=== PATIENT | male | born 1975 | race Caucasian/White ===

== ENCOUNTER 2022-01-24 16:24 | Emergency (ER) | payer BC ==
[2022-01-24 16:39] VITALS: BP 137/83; PULSE 87; RESP 16; TEMP 98.2
[2022-01-24] MEDS ORDERED: KETOROLAC 15 MG/ML 1 ML VIAL IM STA (17:33)
--- NOTE | 2022-01-24 17:36 | ED ---
Skin/Abscess/FB HPI - General Chief complaint: Skin/Abscess/Foreign Body Stated complaint: Body Aches, Rash on back Time Seen by Provider: 01/24/22 16:48 Source: patient, RN notes reviewed, old records reviewed Mode of arrival: ambulatory Limitations: no limitations - History of Present Illness Initial comments: Patient is a 46-year-old male presenting to the emergency Department with complaints of pain on his right back and extending around to the right front of his abdomen. He states it started about 2 days ago, has been really intense and then yesterday he noticed a rash on the same area. He denies any fevers or chills, nausea or vomiting. He has not tried anything for the pain. Patient has never had anything like this before. He denies any chest pain or shortness of breath, no cough or congestion. He has no further complaints. - Related Data Previous Rx's Medication Instructions Recorded Lidocaine 2% Gel [Xylocaine Jelly 1 applic TOPICAL BID PRN #20 gm 01/24/22 2%] valACYclovir HCL [Valtrex] 1,000 mg PO Q8HR 7 Days #21 tab 01/24/22 Allergies Allergy/AdvReac Type Severity Reaction Status Date / Time No Known Allergies Allergy Verified 01/24/22 16:36 Review of Systems ROS Statement: Those systems with pertinent positive or pertinent negative responses have been documented in the HPI. ROS Other: All systems not noted in ROS Statement are negative. Past Medical History Past Medical History: No Reported History History of Any Multi-Drug Resistant Organisms: None Reported Past Surgical History: No Surgical Hx Reported Smoking Status: Current every day smoker Past Alcohol Use History: None Reported Past Drug Use History: Marijuana General Exam - General Exam Comments Initial Comments: GENERAL: Patient is well-developed and well-nourished. Patient is nontoxic and in no acute distress. HEAD: Atraumatic, normocephalic. EYES: Pupils equal round and reactive to light, extraocular movements intact, sclera anicteric, conjunctiva are normal. Eyelids were unremarkable. ENT: Oropharynx clear without exudates. Moist mucous membranes. NECK: Normal range of motion, supple without lymphadenopathy or JVD. LUNGS: Unlabored respirations. Breath sounds clear to auscultation bilaterally and equal. No wheezes rales or rhonchi. HEART: Regular rate and rhythm without murmurs, rubs or gallops. ABDOMEN: Soft, nontender, normoactive bowel sounds. No guarding, no rebound. No masses appreciated. MUSCULOSKELETAL: Normal extremities with adequate strength and normal range of motion, no pitting or edema. No clubbing or cyanosis. NEUROLOGICAL: Patient is alert and oriented x 3. SKIN: Warm, Dry, normal turgor. Patient has mild erythematous papule rash consistent with shingles extending on the right T8 to T9 dermatome from the back extending around to the anterior right trunk. Limitations: no limitations Course Vital Signs 01/24/22 16:36 Temperature 98.2 F Pulse Rate 87 Respiratory 16 Rate Blood Pressure 137/83 O2 Sat by Pulse 98 Oximetry Medical Decision Making - Medical Decision Making Patient is a 46-year-old male here with shingles to the right T8 to T9 dermatome. Pain started about 2 days ago, rash started yesterday. Patient be given pain control here. I will start him on antiviral, recommended ibuprofen and/or Tylenol for discomfort. I will also prescribe him lidocaine patch. She is in agreement with this plan care and is stable for discharge. Disposition Clinical Impression: Shingles Disposition: HOME SELF-CARE Condition: Stable Instructions (If sedation given, give patient instructions): Shingles (ED) Additional Instructions: Please return to the Emergency Department if symptoms worsen or any other concerns. Recommended Tylenol and/or ibuprofen for discomfort. Please use lidocaine patches for pain relief. May also take Benadryl for itching. Follow-up with your PCP. Prescriptions: valACYclovir HCL [Valtrex] 1,000 mg PO Q8HR 7 Days #21 tab Lidocaine 2% Gel [Xylocaine Jelly 2%] 1 applic TOPICAL BID PRN #20 gm PRN Reason: Pain Is patient prescribed a controlled substance at d/c from ED?: No Referrals: None,Stated [Primary Care Provider] - 1-2 days Time of Disposition: 17:37
[2022-01-24] MEDS ORDERED: traMADol 50 MG STARTER PACK 3 TAB BTL PO STA (17:37)
== END 2022-01-24 17:43 | disposition home or self-care (01) ==
LOC: EC 16:24
DX: B02.9 Zoster without complications (principal); F17.200 Nicotine dependence, unspecified, uncomplicated; F12.90 Cannabis use, unspecified, uncomplicated
CPT/HCPCS: 99283; 96372; J1885

== ENCOUNTER 2024-12-21 14:58 | Inpatient (IN) | payer BC, OTHER ==
[2024-12-21] MEDS ORDERED: ACETAMINOPHEN TAB 325 MG TAB PO PRN (15:08)
[2024-12-21] MEDS ORDERED: ONDANSETRON 4 MG/2 ML VIAL IVP PRN (15:08)
[2024-12-21] MEDS ORDERED: NALOXONE 0.4 MG/ML 1 ML VIAL IV PRN (15:08)
[2024-12-21] MEDS ORDERED: VANCOMYCIN IV PER PHARMACY 1 EACH MISC MISCELLANE PRN (15:10)
--- NOTE | 2024-12-21 15:15 | ED ---
General Adult HPI - General Stated complaint: Post-op pain Time Seen by Provider: 12/21/24 15:02 Source: patient, EMS, RN notes reviewed Mode of arrival: EMS Limitations: no limitations - History of Present Illness Initial comments: 49-year-old male presents emergency department with chief complaint of right finger infection. Patient was transferred from [facility]. Patient states he had surgery by on. He schedule have his pin removed of his finger Monday. Patient states overnight he has developed increasing severe pain, swelling and drainage around his pain. Patient states that his initial injury was in July he states he had infection after injury and he states due to the fracture there was some angulation of the finger. Patient's tetanus up-to-date. - Related Data Home Medications Medication Instructions Recorded Confirmed Acetaminophen-Codeine 300-30mg 1 tab PO DIRECTED PRN 01/24/22 01/24/22 [Tylenol w/codeine #3] Previous Rx's Medication Instructions Recorded Lidocaine 2% Gel [Xylocaine Jelly 1 applic TOPICAL BID PRN #20 gm 01/24/22 2%] valACYclovir HCL [Valtrex] 1,000 mg PO Q8HR 7 Days #21 tab 01/24/22 Allergies Allergy/AdvReac Type Severity Reaction Status Date / Time No Known Allergies Allergy Verified 12/21/24 15:04 Review of Systems ROS Statement: Those systems with pertinent positive or pertinent negative responses have been documented in the HPI. ROS Other: All systems not noted in ROS Statement are negative. Past Medical History Past Medical History: No Reported History History of Any Multi-Drug Resistant Organisms: None Reported Past Surgical History: No Surgical Hx Reported Smoking Status: Current every day smoker Past Alcohol Use History: None Reported Past Drug Use History: Marijuana General Exam General appearance: alert, in no apparent distress Head exam: Present: atraumatic, normocephalic, normal inspection Respiratory exam: Present: normal lung sounds bilaterally. Absent: respiratory distress, wheezes, rales, rhonchi, stridor Cardiovascular Exam: Present: regular rate, normal rhythm, normal heart sounds. Absent: systolic murmur, diastolic murmur, rubs, gallop, clicks Extremities exam: Present: other (Right hand index finger there is surgical pain in place there is some small dried drainage around the pin, there is moderate erythema, tenderness with palpation and swelling of the finger) Medical Decision Making - Medical Decision Making Was pt. sent in by a medical professional or institution (LYSSA Yao, [employer], urgent care, hospital, or residential...) When possible be specific @ -[facility] Did you speak to anyone other than the patient for history (EMS, parent, family, police, friend...)? What history was obtained from this source @ -No Did you review nursing and triage notes (agree or disagree)? Why? @ -I reviewed and agree with nursing and triage notes Were old charts reviewed (outside hosp., previous admission, EMS record, old EKG, old radiological studies, urgent care reports/EKG's, residential records)? Report findings @ -No old charts were reviewed Differential Diagnosis (chest pain, altered mental status, abdominal pain women, abdominal pain men, vaginal bleeding, weakness, fever, dyspnea, syncope, headache, dizziness, GI bleed, back pain, seizure, CVA, palpatations, mental health, musculoskeletal)? @ -Finger cellulitis, status post finger pinning, infected surgical site EKG interpreted by me (3pts min.). @ -None X-rays interpreted by me (1pt min.). @ -[X-ray right finger swelling for surgical changes CT interpreted by me (1pt min.). @ -None done U/S interpreted by me (1pt. min.). @ -None done What testing was considered but not performed or refused? (CT, X-rays, U/S, labs)? Why? @ -None What meds were considered but not given or refused? Why? @ -None Did you discuss the management of the patient with other professionals (professionals i.e. LYSSA Yao, [employer], lab, RT, psych nurse, hospice social worker, bottler helper, teacher, deputy probation officer, director case management)? Give summary @ -Dr. Blackmon for orthopedics for admission Was smoking cessation discussed for >3mins.? @ -No Was critical care preformed (if so, how long)? @ -No Were there social determinants of health that impacted care today? How? (Homelessness, low income, unemployed, alcoholism, drug addiction, transportation, low edu. Level, literacy, decrease access to med. care, skilled nursing, rehab)? @ -No Was there de-escalation of care discussed even if they declined (Discuss DNR or withdrawal of care, Hospice)? DNR status @ -No What co-morbidities impacted this encounter? (DM, HTN, Smoking, COPD, CAD, Cancer, CVA, ARF, Chemo, Hep., AIDS, mental health diagnosis, sleep apnea, morbid obesity)? @ -None Was patient admitted / discharged? Hospital course, mention meds given and route, prescriptions, significant lab abnormalities, going to OR and other pertinent info. @ -Admitted patient was given Unasyn prior to arrival. Patient will continue on Unasyn, vancomycin for infection of his next finger status post pinning patient will admitted for further evaluation and treatment. Undiagnosed new problem with uncertain prognosis? @ -No Drug Therapy requiring intensive monitoring for toxicity (Heparin, Nitro, Insulin, Cardizem)? @ -No Were any procedures done? @ -No Diagnosis/symptom? @ -Status post finger pin, right finger cellulitis Acute, or Chronic, or Acute on Chronic? @ -Acute Uncomplicated (without systemic symptoms) or Complicated (systemic symptoms)? @ -Complicated Side effects of treatment? @ -No Exacerbation, Progression, or Severe Exacerbation? @ -No Poses a threat to life or bodily function? How? (Chest pain, [place], CA, pneumonia, PE, COPD, DKA, ARF, appy, cholecystitis, CVA, Diverticulitis, Homicidal, Suicidal, threat to staff... and all critical care pts) @ -No Disposition Clinical Impression: Cellulitis of finger of right hand Disposition: ADMITTED IP TO THIS [facility] Condition: Fair Referrals: None,Stated [Primary Care Provider] - 1-2 days Time of Disposition: 15:08
--- NOTE | 2024-12-21 15:24 | XR ---
EXAMINATION TYPE: XR finger RT DATE OF EXAM: 12/21/2024 3:18 PM COMPARISON: None. CLINICAL INDICATION: Male, 49 years old with history of s/p pin, infection; PHH, pain TECHNIQUE: XR finger RT Frontal, lateral and oblique views were obtained. FINDINGS: Metallic pin visualized traversing the second digit PIP joint. No definite focal osseous er osion or aggressive periosteal reaction. Soft tissue swelling throughout the second digit. IMPRESSION: Second digit soft tissue swelling with orthopedic hardware as above. No focal osseous erosion or aggr essive periosteal reaction. [facility], , 12/21/2024 3:22 PM
[2024-12-21] MEDS: VANCOMYCIN 1,500 MG in SODIUM CHLORIDE 0.9% 500 ML 500 ML IVPB ONE (15:38)
[2024-12-21 17:36] LABS: Basophils % (A) 0 %; Eosinophils # (A) 0.2 k/uL (0-0.7); Eosinophils % (A) 3 %; HCT 44.2 % (39.0-53.0); HGB 14.1 gm/dL (13.0-17.5); Lymphocytes # (A) 2.5 k/uL (1.0-4.8); Lymphocytes % (A) 30 %; MCH 29.3 pg (25.0-35.0); MCHC 31.9 g/dL (31.0-37.0); MCV 92.1 fL (80.0-100.0); Mean Platelet Volume 7.1; Monocytes # (A) 0.3 k/uL (0-1.0); Monocytes % (A) 3 %; Neutrophils # (A) 5.2 k/uL (1.3-7.7); Neutrophils % (A) 63 %; Platelet Count 308 k/uL (150-450); RDW 12.8 % (11.5-15.5); WBC 8.4 k/uL (3.8-10.6)
[2024-12-21] MEDS: HYDROcodone/APAP 5-325MG 1 EACH TAB PO PRN (17:52)
[2024-12-21] MEDS: AMPICILLIN-SULBACTAM 3 GM in SODIUM CHLORIDE 0.9% 100 ML IVPB SCH (20:05)
[2024-12-21] MEDS: HYDROmorphone 1 MG/ML 1 ML SYRINGE IVP PRN (20:10)
[2024-12-21] MEDS: HYDROcodone/APAP 7.5-325MG 1 EACH TAB PO PRN (23:04)
[2024-12-22] MEDS: VANCOMYCIN 1,500 MG in SODIUM CHLORIDE 0.9% 500 ML 500 ML IVPB SCH (01:43)
[2024-12-22 07:03] LABS: African American GFR (CKD) >90 (>60 ml/min/1.73 sqM); Anion Gap 6 mmol/L; Blood Urea Nitrogen 12 mg/dL (9-20); Calcium 8.2 mg/dL (8.4-10.2); Carbon Dioxide 25 mmol/L (22-30); Chloride 105 mmol/L (98-107); Glucose 100 mg/dL (74-99); Non-African American GFR(CKD) >90 (>60 ml/min/1.73 sqM); Potassium 4.3 mmol/L (3.5-5.1); Sodium 136 mmol/L (137-145)
[2024-12-22 07:11] LABS: Erythrocyte Sedimentation Rate 14 mm/Hr (0-15)
[2024-12-22] MEDS: NICOTINE 21MG/24HR PATCH TRANSDERM SCH (10:13)
--- NOTE | 2024-12-22 10:26 | P.HPOR ---
History of Present Illness H&P Date: 12/22/24 Chief Complaint: Right index finger pain and swelling with concern for infection Patient is a [id number] male who is 5 weeks status post right index finger extensor tendon repair at the level of the PIP joint with PIP joint pinning after he sustained a laceration to the dorsal index finger in July 2024 and had persistent inability to extend the PIP joint of the index finger. Patient was progressing well in his postoperative course until Monday when he noticed some mild swelling and subjective erythema to the digit however he continued to have increased pain and swelling into Monday and he noticed a small amount of drainage from his pin site at that time prompting him to present to the emergency department. Patient was admitted by one of my partners yesterday for initiation of antibiotic therapy. Today he notes some mild improvement in his pain he denies any drainage from his pin site since he has been on his antibiotics. Patient notes pain along the undersurface of his finger and swelling of the digit mostly around the middle phalanx and proximal phalanx he denies any numbness to the index finger. He continues to be able to move the digit at the MP joint as well as the DIP joint the PIP joint is pinned and no active motion is possible. He denies any fevers or chills when he was at home. Of note patient is roughly a pack-a-day smoker and he has not been able to successfully cut down in his postoperative course. Review of Systems Constitutional: Denies chills, Denies fever Musculoskeletal: Reports as per HPI Neurological: Denies numbness Psychiatric: Denies confusion Past Medical History Past Medical History: No Reported History History of Any Multi-Drug Resistant Organisms: None Reported Past Surgical History: Orthopedic Surgery Additional Past Surgical History / Comment(s): surgery on right index finger nov 2024. Past Psychological History: No Psychological Hx Reported Smoking Status: Current every day smoker Past Alcohol Use History: None Reported Past Drug Use History: Marijuana Medications and Allergies Home Medications Medication Instructions Recorded Confirmed Type No Known Home Medications 12/21/24 12/21/24 History Allergies Allergy/AdvReac Type Severity Reaction Status Date / Time No Known Allergies Allergy Verified 12/21/24 16:14 Physical Examination General: Patient is alert and oriented in no acute distress CV: Patient has a normal heart rate and intact distal pulses pulm: Patient is in no respiratory distress and there is no audible wheezing msk: On exam of the right index finger his pin is in place and currently there is no active or expressible drainage from the pin site His dorsal wound is well-appearing and well-healed also with no signs of drainage He has moderate swelling slightly increased from his baseline to the area of the middle and proximal phalanx There are no focal areas of fluid collection identified to suggest presence of an abscess He has tenderness along the volar aspect of the index finger at the level of the middle and proximal phalanx Patient does not have any pain to the distal phalanx Currently there is no evidence or concern of infection involving the palm patient has no pain with motion of the wrist or adjacent fingers Patient has intact active and pain-free motion of the MP joints and DIP joints He has intact sensation to light touch throughout the digit He has brisk capillary refill to the right index finger less than 3 seconds Results Admission inflammatory labs have been reassuring with WBC within normal limits as well as ESR and CRP labs also within normal limits - Labs Labs: Abnormal Lab Results - Last 24 Hours (Table) 12/22/24 Range/Units 06:40 Sodium 136 L (137-145) mmol/L Glucose 100 H (74-99) mg/dL Calcium 8.2 L (8.4-10.2) mg/dL H & H 12/21/24 Range/Units 17:25 Hgb 14.1 (13.0-17.5) gm/dL Hct 44.2 (39.0-53.0) % Result Diagrams: 12/21/24 17:25 12/22/24 06:40 - Diagnostic results Wrist/Hand x-ray: image reviewed (Imaging of the right hand specifically index finger shows stable position of his implanted K wire without evidence of loosening or osteolysis of the involved bones there is noted soft tissue swelling however this is very similar when compared to even his preoperative imaging) Assessment and Plan Assessment: Patient is 5 weeks status post right index finger extensor tendon repair at the level of the PIP joint with associated PIP joint pinning Currently he presents with concerns for right index finger cellulitis, versus early flexor tenosynovitis Plan: For now giving the timing of his symptoms and quick presentation to the hospital as well as his somewhat reassuring exam with his ability to actively move the adjacent digits of the index finger I feel a course of IV antibiotics at this time as a reasonable chance of addressing his infection however we will have a low threshold for operative intervention in the form of irrigation debridement of the flexor tendon sheath and possibly the PIP joint of the index finger Patient was scheduled to see me this coming Monday with plan for pin removal and initiation of hand therapy targeted to the PIP joint we discussed that we will plan to remove the pin during this admission to remove the potential nidus for ongoing infection given that he has had 5 weeks of tendon healing I believe the risk of tendon rupture versus the risk of ongoing infection favors removal in an earlier timeline For now nonweightbearing to the right hand Continue IV antibiotics Patient will be n.p.o. at midnight for potential operative intervention tomorrow should his exam worsen I will obtain equipment from the operating room in order to remove his pin at the bedside and coordinate pain medication prior to removal with nursing staff
--- NOTE | 2024-12-22 16:24 | P.PN ---
Progress Note - Text Progress Note Date: 12/22/24 Discussed with the patient that this far after his surgery I feel the risk of the pin being a potential nidus of infection versus the added protection of an additional week of the pinning to the tendon repair I would favor removing the pin today in order to remove that potential source of infection and route into the bony structures. Because of the previous position of the pin involving the middle and proximal phalanx of the finger there is a potential for bone involvement in the presence of his current infection. We discussed that an MRI would be helpful to further elicit whether is that there is any bony involvement this would also allow us to evaluate the flexor tendon sheath for assessment of any fluid accumulations or the potential for any developing abscesses. Patient is in agreement and wishes to proceed with pin removal today, after sterile prep with a ChloraPrep prep stick the pin was removed in its entirety, there was no purulent drainage from the pin tract only a small amount of bleeding. Patient tolerated the procedure well he was fitted with a sterile bandage and a PIP extension splint afterwards. Patient again will be n.p.o. at midnight tonight for potential operative intervention should his exam worsen on follow-up evaluations, MRI will be placed and we will assess those results for further guidance regarding treatment going forward.
[2024-12-23 08:11] LABS: African American GFR (CKD) >90 (>60 ml/min/1.73 sqM); Anion Gap 8 mmol/L; Blood Urea Nitrogen 9 mg/dL (9-20); Carbon Dioxide 29 mmol/L (22-30); Chloride 101 mmol/L (98-107); Glucose 97 mg/dL (74-99); Non-African American GFR(CKD) >90 (>60 ml/min/1.73 sqM); Potassium 4.2 mmol/L (3.5-5.1); Sodium 138 mmol/L (137-145)
[2024-12-23] MEDS: VANCOMYCIN TROUGH DUE 1 EACH MISC MISCELLANE ONE (08:21)
[2024-12-23] MEDS: PIPERACILLIN-TAZOBACTAM 3.375 GM in SODIUM CHLORIDE 0.9% 100 ML IVPB SCH (09:54)
--- NOTE | 2024-12-23 11:27 | P.PN ---
Progress Note - Text Progress Note Date: 12/23/24 Patient seen and examined this morning. Overall he notes improvement in his pain to the right index finger, he denies any issues with fevers or chills overnight. He has been n.p.o. since midnight. On exam his splint is removed he has significantly decreased swelling to the right index finger, he no longer has tenderness on the volar aspect of the proximal phalanx, he continues to have some mild tenderness to the volar aspect overlying the middle phalanx. No tenderness over the distal phalanx continues to be able to move the MP joint and DIP joint without pain and he remains neurovascularly intact to the index finger. His PIP extension splint was reapplied after examination. Given his level of improvement with IV antibiotics I do favor cellulitis is being the most likely cause of his finger swelling, however given the presence of his PIP spanning pin in the setting of infection I do think it is worthwhile to rule out a potential osteomyelitis component especially in order to determine appropriate antibiotic course. He currently has his MRI scheduled and due to the significant nature of stat and otherwise urgent scans ordered he is scheduled tentatively for this afternoon but if not early tomorrow morning. For now we will keep him n.p.o. at midnight should his exam worsen and require debridement in the OR tomorrow Remain nonweightbearing to the right hand, he should maintain his PIP extension splint at all times Continue IV antibiotics Continue multimodal pain regimen SCDs and ambulation for DVT prophylaxis
--- NOTE | 2024-12-23 15:18 | MR ---
EXAMINATION TYPE: MR hand RT wo/w con DATE OF EXAM: 12/23/2024 2:57 PM COMPARISON: None. CLINICAL INDICATION: Male, 49 years old with history of Assess for osteomyelitis vs flexor tenosynovi tis, Assess for osteomyelitis vs flexor tenosynovitis, TECHNIQUE: Multiplanar, multisequence MR imaging of the hand was performed IV Contrast: 8 cc Gadobutrol (None if empty) FINDINGS: Abnormal edema throughout the second digit with abnormal bone marrow signal within the prox imal phalanx head and middle phalanx base. Abnormal appearance of the proximal interphalangeal joint series 1201 image 16 with loss of cortex at the interphalangeal joint. Possible tract extending away from the proximal interphalangeal joint series 701 image 15 No organizing fluid collection. The flexo r tendons appear intact. There is some edema around the flexor tendons. The remainder of the digits a ppear intact. Intraosseous ganglion cyst in the fifth and third digit metacarpal heads. No evidence for tenosynovit is or ruptured tendon. IMPRESSION: Diffuse swelling of the second digit with abnormal bone marrow signal involving the proxi mal phalanx head and middle phalanx base. Possible tract extending off the dorsal aspect at the level of the joints with osseous erosion of the cortex at the level of the joint visualized. Orthopedic co nsultation recommended if not already performed. [facility], , 12/23/2024 3:15 PM
[2024-12-24 04:16] LABS: African American GFR (CKD) >90 (>60 ml/min/1.73 sqM); Non-African American GFR(CKD) >90 (>60 ml/min/1.73 sqM)
[2024-12-24 08:50] VITALS: BP 162/105; PULSE 60; RESP 17; TEMP 98.1
--- NOTE | 2024-12-24 08:52 | P.PN ---
Progress Note - Text Progress Note Date: 12/24/24 Patient seen and examined this morning, he notes continued improvement in his pain and swelling to the right index finger. He denies any new drainage from his previous pin site. He has been wearing his PIP extension splint. Denies any issues with fevers or chills. On exam of the right index finger he has further improved swelling to the proximal and middle phalanx, no drainage from his pin site, he has minimal tenderness today at the middle phalanx volar aspect he has no tenderness along the volar aspect of the proximal phalanx or distal phalanx. He has pain-free range of motion of the MP joint as well as the DIP joint. No pain with passive extension of the index finger, though stiff from previous pinning is able to be maintained in a fully extended position even subtle motion of the PIP joint, respecting the range of motion limitations in the setting of his tendon repair is not painful. Used to have normal sensation and brisk capillary refill to the index finger. We had a detailed discussion about the MRI findings, there is findings of diffuse soft tissue edema consistent with cellulitis as well as findings of increased signal intensity to the proximal and middle phalanges of the digit. We discussed that this finding is complicated by the fact that he has had the pi n in place for these past 5 weeks and the pin in and of itself is a trauma to each of these bones that can result in a marrow edema reaction. Certainly osteomyelitis of the digit also needs to be considered however given the constellation of his benign inflammatory markers on admission, his significant improvement and relatively quick fashion with IV antibiotics and his overall reassuring reassuring exam favors more of a cellulitis picture with the marrow edema being secondary to the trauma of the implanted pin. I discussed the case with multiple academic hand surgeons and the consensus was that with his overall clinical picture the findings favor the marrow reaction from the pin versus focal osteomyelitis. Had a discussion that this is something we will need to keep a close eye on especially as we begin the discharge planning process to ensure that his infection and symptoms do not worsen once off IV antibiotics. We discussed that we will plan to place him on a period of oral antibiotics to treat the suspected cellulitis however should symptoms return or worsen I will have a low threshold to have him evaluated by an infectious disease specialist for possible consideration of a formal IV antibiotic regimen or possibly a prolonged oral antibiotic regimen. For now patient will continue to be nonweightbearing to the right hand Maintain his PIP extension splint Ovation as often as possible to help with pain and swelling New IV antibiotics Even his improved exam we will plan for discharge later this afternoon after another round of IV antibiotics this morning Patient was previously scheduled to follow-up with me on Monday for pin removal I discussed that he should keep this appointment in order for us to assess his clinical exam off of IV antibiotics
--- NOTE | 2024-12-24 11:06 | P.DS ---
Providers Date of admission: 12/21/24 15:33 Expected date of discharge: 12/24/24 Attending physician: Koko Esteves MD Primary care physician: Gege Rogers - Discharge Diagnosis(es) (1) Cellulitis of finger of right hand Current Visit: Yes Status: Acute Hospital Course: This is a 49-year-old male who was admitted for infection of the right index finger. Patient underwent right index finger extensor tendon repair about 5 weeks ago. Patient was doing well, but within the last week developed increasing pain, swelling, and mild drainage from his pin site in the right index finger. Patient presented to the emergency room and was admitted for IV antibiotics. Patient's symptoms have improved with IV antibiotics. An MRI was done revealing findings consistent with recent surgery and cellulitis. Labs and vital signs are stable on day of discharge. Patient will be discharged home on oral antibiotics with close outpatient follow-up. Patient is discharged home in good condition. Please see med rec for accurate list of home medications. Patient Condition at Discharge: Fair Plan - Discharge Summary Discharge Rx Participant: No New Discharge Prescriptions: New Levofloxacin [Levaquin] 750 mg PO DAILY 14 Days #14 tab Sulfamethox-Tmp 800-160Mg [Bactrim DS 800-160 mg] 1 tab PO Q12HR 14 Days #28 tab HYDROcodone/APAP 7.5-325MG [[place] 7.5-325] 1 tab PO Q4-6H PRN #30 tab PRN Reason: Pain Sennosides [Senokot] 2 tab PO DAILY PRN #60 tablet PRN Reason: Constipation Discharge Medication List HYDROcodone/APAP 7.5-325MG [[place] 7.5-325] 1 tab PO Q4-6H PRN #30 tab 12/24/24 [Rx] Levofloxacin [Levaquin] 750 mg PO DAILY 14 Days #14 tab 12/24/24 [Rx] Sennosides [Senokot] 2 tab PO DAILY PRN #60 tablet 12/24/24 [Rx] Sulfamethox-Tmp 800-160Mg [Bactrim DS 800-160 mg] 1 tab PO Q12HR 14 Days #28 tab 12/24/24 [Rx] Follow up Appointment(s)/Referral(s): Koko Esteves MD [STAFF PHYSICIAN] - 12/27/24 1:25 pm None,Stated [REFERRING] - 1-2 days Activity/Diet/Wound Care/Special Instructions: Please take medications as prescribed. Nonweightbearing to the right hand. Maintain extension splint. Elevate for swelling. Please follow-up with [facility] as scheduled on 12/27/2024 and call with any questions or concerns, . Discharge Disposition: HOME SELF-CARE
== END 2024-12-24 15:55 | disposition home or self-care (01) | DRG 863 ==
LOC: EC 14:58 → 4SSUR 15:32 → OBSVTOIN 15:33 → 4SSUR 16:40
PROVIDERS: ADMIT Orthopaedic Surgery; ATTEND Orthopaedic Surgery
DX: T81.49XA Infection following a procedure, other surgical site, initial encounter (principal); F17.210 Nicotine dependence, cigarettes, uncomplicated; L03.011 Cellulitis of right finger; Z28.310 Unvaccinated for COVID-19; S61.210S Laceration without foreign body of right index finger without damage to nail, sequela
CPT/HCPCS: 80048; 80202; 82565; 85025; 85652; 86140; 96365; 99285